=== PATIENT | male | born 1975 | race Two or more races ===

== ENCOUNTER 2017-11-25 00:41 | Emergency (ER) | payer SELFPAY ==
[2017-11-25] MEDS ORDERED: ACETAMINOPHEN 500 MG TAB PO ONE (01:03)
[2017-11-25] MEDS ORDERED: IPRATROPIUM/ALBUTEROL 3 ML DEYVIAL IH ONE (01:06)
--- NOTE | 2017-11-25 01:20 | EDPHY ---
H & P Stated Complaint: URI and BLUNT Time Seen by Provider: 11/25/17 00:53 HPI/ROS: Chief Complaint: Cough, headache HPI: 42-year-old male with a history of asthma and diabetes presenting with 1 day of worsening cough, mild shortness of breath. Is also complaining of a bifrontal headache. He has been using his albuterol inhaler that any relief. Is not any chronic control medications. No fevers or chills. Cough is nonproductive. No chest pain. Mild shortness of breath. No nausea or vomiting. He has been taking his medications his blood sugars have been running in about 170s. ROS: 10 point Review of Systems is negative except as noted in the HPI. PMH: Asthma, diabetes Social History: No smoking, no alcohol, no recreational drug use Family History: non-contributory Physical Exam: Gen: Awake, Alert, No Distress HEENT: Nose: no rhinorrhea Eyes: PERRLA, EOMI Mouth: Moist mucosa Neck: Supple, no JVD Chest: nontender, decreased breath sounds, diffuse expiratory wheeze, prolonged expiratory phase Heart: S1, S2 normal, no murmur Abd: Soft, non-tender, no guarding Back: no CVA tenderness, no midline tenderness Ext: no edema, non-tender Skin: no rash Neuro: CN II-XII intact, Sensation grossly intact, Strength 5/5 in bilateral upper and lower extremities - Personal History Current Tetanus/Diphtheria Vaccine: Yes Current Tetanus Diphtheria and Acellular Pertussis (TDAP): Yes - Medical/Surgical History Hx Asthma: Yes Hx Chronic Respiratory Disease: No Hx Diabetes: No Hx Cardiac Disease: No Hx Renal Disease: No Hx Cirrhosis: No Hx Alcoholism: No Hx HIV/AIDS: No Hx Splenectomy or Spleen Trauma: No Other PMH: asthma, right wrist surgery - Social History Smoking Status: Current every day smoker Constitutional: Initial Vital Signs Temperature (C) 36.8 C 11/25/17 00:44 Heart Rate 100 11/25/17 00:44 Respiratory Rate 16 11/25/17 00:44 Blood Pressure 126/83 H 11/25/17 00:44 O2 Sat (%) 93 11/25/17 00:44 O2 Delivery Mode Room Air Allergies/Adverse Reactions: No Known Allergies Allergy (Verified 11/25/17 00:48) Home Medications: Medication Instructions Recorded predniSONE 60 mg PO DAILY #9 tab 11/25/17 Medical Decision Making ED Course/Re-evaluation: Patient is improved after a DuoNeb. He has not been using a spacer with his inhaler. Blood sugar is appropriate. Repeat examination shows no wheezing. I am going to start him on prednisone but he knows that this will cause his blood sugars to arise and he will adjust his insulin dosing accordingly. He is in agreement. Will discharge with the spacer, follow up with primary care physician. He can also use [id number] cough and cold medicines as needed. - Data Points Laboratory Results: 11/25/17 01:09 POC Glucose 153 mg/dL H mg/dL (70-100) Medications Given: Discontinued Medications Acetaminophen (Tylenol) 1,000 mg PO EDNOW ONE Stop: 11/25/17 01:04 Last Admin: 11/25/17 01:08 Dose: 1,000 mg Albuterol/Ipratropium (Duoneb) 3 ml IH EDNOW ONE Stop: 11/25/17 01:07 Last Admin: 11/25/17 01:09 Dose: 3 ml Point of Care Test Results: Chemistry 11/25/17 01:09 POC Glucose 153 mg/dL H mg/dL (70-100) Departure - Departure Disposition: Home, Routine, Self-Care Clinical Impression: Asthma attack Condition: Good Instructions: Asthma (ED) Additional Instructions: Check your blood sugars frequently and increase her insulin dose for corrections because used the prednisone will cause her blood sugars to go higher. Use a spacer with your inhaler at all times. Follow up with primary care physician in 2-3 days for further evaluation. Return to the emergency department for increasing cough, shortness of breath, fevers, chills, or any other concerns. Referrals: [facility] [Other] - As per Instructions Prescriptions: predniSONE 60 mg PO DAILY #9 tab
[2017-11-25] MEDS ORDERED: predniSONE 20 MG TAB PO ONE (03:03)
[2017-11-25 03:11] VITALS: BP 109/83
== END 2017-11-25 03:11 | disposition home or self-care (01) ==
DX: J45.909 Unspecified asthma, uncomplicated (principal); E11.9 Type 2 diabetes mellitus without complications; F17.200 Nicotine dependence, unspecified, uncomplicated
CPT/HCPCS: J7512